=== PATIENT | female | born 1940 | race Caucasian/White ===

== ENCOUNTER 2020-01-03 00:36 | Emergency (ER) | payer OTHER, BC ==
[2020-01-03 00:42] VITALS: TEMP 97.5; BMI 25.0
--- NOTE | 2020-01-03 01:28 | PDOC ---
History of Present Illness - General Chief Complaint: Palpitations Stated Complaint: ELEVATED HEART RATE/HX OF AFIB Time Seen by Provider: 01/03/20 00:45 History Source: Patient Exam Limitations: No Limitations - History of Present Illness Initial Comments: 01/03/20 01:25 signed up for pt at 1: 26 am 79 yo female pmh atrial fibrillation h/o RFA and multiple ablations (most recent 2 years 75 yo female with known h/o paroxysmal atrial fibrillation h/o RFA and post cardioversion most recently 10/05/2016 currently on antiarrhythmic and Xarelto [id number], mitral valve prolapse with mild-moderate MR, HTN/HCVD, diastolic dysfunction with mod pulm HTN, RA Past History - Past Medical History Allergies/Adverse Reactions: Allergies Allergy/AdvReac Type Severity Reaction Status Date / Time codeine Allergy Severe Hives Verified 01/03/20 00:42 diltiazem HCl Allergy Intermediate Hives Verified 01/03/20 00:42 [From CiDRA XT] Home Medications: Ambulatory Orders Rivaroxaban [Xarelto -] 20 mg PO DAILY 02/05/16 Sotalol HCl [Betapace -] 120 mg PO BID 02/05/16 Famotidine [Acid Controller] 20 mg PO BID 01/03/20 Olmesartan/Hydrochlorothiazide [Olmesartan-Hctz 20-12.5 mg Tab] 1 each PO DAILY 01/03/20 Anemia: No Asthma: No Cancer: Yes (RIGHT BREAST-ON RADIATION) Cardiac Disorders: Yes (ATRIAL FIBRILLATION W/ CARDIOVERSION 2X) CVA: No COPD: No CHF: No Dementia: No Diabetes: No GI Disorders: Yes (IBS,COLON POLYP. GERD) Disorders: No HTN: Yes Hypercholesterolemia: No Liver Disease: No Seizures: No Thyroid Disease: No - Surgical History Abdominal Surgery: Yes Appendectomy: No Cardiac Surgery: Yes (ABLATION) Cholecystectomy: No Lung Surgery: No Neurologic Surgery: No Orthopedic Surgery: No - Immunization History Immunization Up to Date: Yes - Psycho Social/Smoking Cessation Hx Smoking Status: No Smoking History: Never smoked Have you smoked in the past 12 months: No Number of Cigarettes Smoked Daily: 0 Hx Alcohol Use: Yes (OCCASIONAL WINE) Drug/Substance Use Hx: No Substance Use Type: None Hx Substance Use Treatment: No *Physical Exam - Vital Signs Last Vital Signs Temp Pulse Resp BP Pulse Ox 97.5 F L 85 18 180/77 H 97 01/03/20 00:39 01/03/20 00:39 01/03/20 00:39 01/03/20 00:39 01/03/20 00:39 ED Treatment Course - LABORATORY CBC & Chemistry Diagram: 01/03/20 02:05 01/03/20 02:05 Discharge - Discharge Information Problems reviewed: Yes Clinical Impression/Diagnosis: Atrial fibrillation Condition: Stable Disposition: HOME - Admission No - Follow up/Referral Referrals: Ruben Queen MD [Primary Care Provider] - iCsco Hinojosa MD [Staff Physician] - - Patient Discharge Instructions Patient Printed Discharge Instructions: DI for Atrial Fibrillation Additional Instructions: Please make an appointment to see you [facility] and Primary Doctor within the next 48 hours. You can return to the ER at any time for evaluation and admission for atrial fibrillation and you have decided to see your Primary [facility] as an outpatient instead. Return to the ER for new or concerning symptoms at any time. Thank you - Post Discharge Activity
[2020-01-03 02:15] LABS: BASO % 0.5 % (0-2.0); EOS % 1.6 % (0-4.5); HEMATOCRIT 38.5 % (32.4-45.2); HEMOGLOBIN 13.1 GM/dL (10.7-15.3); LYMPH % 11.5 % (8-40); MCH 31.5 pg (25.7-33.7); MCHC 33.9 g/dl (32.0-36.0); MONO % 6.6 % (3.8-10.2); NEUT % 79.8 % (42.8-82.8); PLATELET COUNT 198 K/MM3 (134-434); RBC 4.14 M/mm3 (3.60-5.2); RDW 14.9 % (11.6-15.6); WHITE BLOOD COUNT 8.8 K/mm3 (4.0-10.0)
--- NOTE | 2020-01-03 02:30 | PDOC ---
Attending Attestation - Resident Resident Name: ElidiaArmand - ED Attending Attestation I have performed the following: I have examined & evaluated the patient, The case was reviewed & discussed with the resident, I agree w/resident's findings & plan, Exceptions are as noted - HPI HPI: 01/03/20 02:28 79 yo F with h/o paroxysmal afib. s/p 2 ablations, here with c/o racing heart beat this evening around 11 pm. lasted 1 hours. denies chest pain. no sob. no f/ c no urinar complaints. no f/c spont resolved. currently feels improved. has required shock for dysthymia in the past . has seen dr Sophy richmond and Dr Burgos. - Physicial Exam PE: 01/03/20 02:29 pt awake alert heart rrr no mrg abd soft nt nd ext wwp. skin warm and dry. pulses symmetric. - Medical Decision Making 01/03/20 02:29 79 yo F h/o afib here wiht racing heart beat, now currently in sinus. differential dysrhtymia, parox afib, anemia, electrolyte disturbance. plan labs ekg trop ua tsh, cxr. 01/03/20 03:13 pt in sinus rhythm in ED, labs unremarkable. trop negative. pt woud like to go [place]. suggested tel monitoring and she is unwilling to stay. is already anticoagulated. told to follow up with dr Beckett in am. return for worsening palpitations or racing heart beat. Heart Score/ECG Review #1 General ECG Interpretation: Sinus Rhythm, Normal Rate (77), Normal Intervals, No acute ischemic changes
[2020-01-03 02:31] LABS: INR 2.95 (0.83-1.09); PROTHROMBIN TIME (PATIENT) 35.2 SEC (9.7-13.0)
[2020-01-03 02:33] LABS: ACTIVATED PTT 50.3 SECONDS (25.2-36.5)
[2020-01-03 02:46] LABS: ALBUMIN 4.1 g/dl (3.4-5.0); ALK PHOS 77 U/L (45-117); ANION GAP 9 MMOL/L (8-16); BILIRUBIN,TOTAL 0.4 mg/dL (0.2-1); BLOOD UREA NITROGEN 26.9 mg/dL (7-18); CALCIUM 9.5 mg/dL (8.5-10.1); CHLORIDE 102 mmol/L (98-107); CO2 29 mmol/L (21-32); CREATININE 1.1 mg/dL (0.55-1.3); GLUCOSE,RANDOM 145 mg/dL (74-106); POTASSIUM 4.1 mmol/L (3.5-5.1); SGOT/AST 19 U/L (15-37); SGPT/ALT 28 U/L (13-61); SODIUM 139 mmol/L (136-145); TOT PROT 7.6 g/dl (6.4-8.2)
[2020-01-03 03:18] VITALS: BP 117/71; PULSE 68
--- NOTE | 2020-01-03 13:59 | EKG ---
Test Reason : Blood Pressure : / mmHG Vent. Rate : 077 BPM Atrial Rate : 077 BPM P-R Int : 160 ms QRS Dur : 092 ms QT Int : 428 ms P-R-T Axes : 084 068 054 degrees QTc Int : 484 ms NORMAL SINUS RHYTHM NONSPECIFIC ST ABNORMALITY ABNORMAL ECG WHEN COMPARED WITH ECG OF 20-OCT-2016 12:14, CRITERIA FOR SEPTAL INFARCT ARE NO LONGER PRESENT Confirmed by INDY MURDOCK MD ([id number]) on 01/03/2020 1:59:03 PM Referred By: Confirmed By:INDY MURDOCK MD
== END 2020-01-03 03:29 | disposition home or self-care (01) ==
LOC: JER 00:36
DX: I48.0 Paroxysmal atrial fibrillation (principal); Z79.01 Long term (current) use of anticoagulants; I10 Essential (primary) hypertension; Z85.3 Personal history of malignant neoplasm of breast; Z92.3 Personal history of irradiation; I34.0 Nonrheumatic mitral (valve) insufficiency; M06.9 Rheumatoid arthritis, unspecified; K21.9 Gastro-esophageal reflux disease without esophagitis; Z88.8 Allergy status to other drugs, medicaments and biological substances; Z88.5 Allergy status to narcotic agent; Z86.010 Personal history of colon polyps
CPT/HCPCS: 36415; 71045-TC-FY; 80053; 82550; 83735; 84443; 84484; 85025; 85610; 85730; 93005; 93010; 99285-25

== ENCOUNTER 2020-08-04 16:02 | Inpatient (IN) | payer OTHER, BC ==
--- NOTE | 2020-08-04 16:19 | PDOC ---
Rapid Medical Evaluation Time Seen by Provider: 08/04/20 16:16 Medical Evaluation: Allergies Allergy/AdvReac Type Severity Reaction Status Date / Time codeine Allergy Severe Hives Verified 01/03/20 00:42 diltiazem HCl Allergy Intermediate Hives Verified 01/03/20 00:42 [From Cartia XT] 08/04/20 16:16 I have performed a brief in-person examination on this patient. CC: "I passed out today." Struck head on chest of drawers during fall. PE: BP-184/81. Orders: cardiac w/u, HCT Patient will proceed to ED for further evaluation. Discharge Disposition - Diagnosis Syncope and collapse - Referrals - Patient Instructions - Post Discharge Activity
[2020-08-04] MEDS ORDERED: KETOROLAC TROMETHAMINE 30 MG/1 ML VIAL ONE (18:05)
[2020-08-04 18:42] LABS: BASO % 0.7 % (0-2.0); EOS % 1.8 % (0-4.5); HEMATOCRIT 37.2 % (32.4-45.2); HEMOGLOBIN 12.7 GM/dL (10.7-15.3); LYMPH % 18.3 % (8-40); MCH 31.8 pg (25.7-33.7); MCHC 34.1 g/dl (32.0-36.0); MEAN CELL VOLUME 93.2 fl (80-96); MEAN PLT VOLUME 9.2 fl (7.5-11.1); MONO % 8.6 % (3.8-10.2); NEUT % 70.6 % (42.8-82.8); PLATELET COUNT 189 K/MM3 (134-434); RBC 3.99 M/mm3 (3.60-5.2); RDW 14.6 % (11.6-15.6); WHITE BLOOD COUNT 6.1 K/mm3 (4.0-10.0)
--- NOTE | 2020-08-04 18:43 | PDOC ---
History of Present Illness - General Chief Complaint: Injury Stated Complaint: BLOOD PRESSURE PROBLEM Time Seen by Provider: 08/04/20 16:16 - History of Present Illness Initial Comments: 08/04/20 18:43 79 yo f with pmh of afib (on xarelto), htn, multiple ablations presents to ED after fall at 8:30am. Pt explains she was making her bed and then she felt lightheaded and off balance. Then patient fell on right side and on head. Pt explains she never loc and was on the floor for a few seconds and was able to get up on her own. Pt afterwards just felt lightheaded. She continuosly took her BP since fall and at 4 pm Bp was 180s/90 and pt decided to come in. Pt currently denies any chest pain, SOB, headache, fevers, chills, change in bowel movements, change in urination, emesis, sick contacts or dizziness. PMH: afib, htn PSH: 2 ablations Allergies: codeine Meds: sotalol 120 BID, xarelto 20 QID, olmesartan/hctz 20-12.5 QD, famotidine 20 QD Social: denies smoking, drugs, or alcohol PCP: Dr. Jesus Lord Cardio: Dr. Hernandez Past History - Medical History Allergies/Adverse Reactions: Allergies Allergy/AdvReac Type Severity Reaction Status Date / Time codeine Allergy Severe Hives Verified 08/04/20 16:16 diltiazem HCl Allergy Intermediate Hives Verified 08/04/20 16:16 [From Cartia XT] Home Medications: Ambulatory Orders Rivaroxaban [Xarelto -] 20 mg PO DAILY 02/05/16 Sotalol HCl [Betapace -] 120 mg PO BID 02/05/16 Famotidine [Acid Controller] 20 mg PO BID 01/03/20 Olmesartan/Hydrochlorothiazide [Olmesartan-Hctz 20-12.5 mg Tab] 1 each PO DAILY 08/05/20 Anemia: No Asthma: No Cancer: Yes (RIGHT BREAST-ON RADIATION) Cardiac Disorders: Yes (ATRIAL FIBRILLATION W/ CARDIOVERSION 2X) CVA: No COPD: No CHF: No Dementia: No Diabetes: No GI Disorders: Yes (IBS,COLON POLYP. GERD) Disorders: No HTN: Yes Hypercholesterolemia: No Liver Disease: No Seizures: No Thyroid Disease: No - Surgical History Abdominal Surgery: Yes Appendectomy: No Cardiac Surgery: Yes (ABLATION) Cholecystectomy: No Lung Surgery: No Neurologic Surgery: No Orthopedic Surgery: No - Immunization History Immunization Up to Date: Yes - Psycho-Social/Smoking History Smoking Status: No Smoking History: Never smoked Have you smoked in the past 12 months: No Number of Cigarettes Smoked Daily: 0 - Substance Abuse Hx (Audit-C & DAST Scrn) How often the patient has a drink containing alcohol: Monthly or less Number of drinks the patient has on a typical day: 1 or 2 How often the patient has six or more drinks on one occasion: Never Score: In Men: 4 or > Positive; In Women: 3 or > Positive: 1 Screen Result (Pos requires Nsg. Audit-10AR): Negative In the last yr the pt used illegal drug/Rx for NonMed reason: No Score: Yes response is considered Positive: 0 Screen Result (Positive result requires Nsg. DAST-10): Negative Review of Systems - Review of Systems Comments:: 08/04/20 19:27 GENERAL/CONSTITUTIONAL: No fever or chills. No weakness. HEAD, EYES, EARS, NOSE AND THROAT: No change in vision. No ear pain or discharge. No sore throat. CARDIOVASCULAR: No chest pain or shortness of breath RESPIRATORY: No cough, wheezing, or hemoptysis. GASTROINTESTINAL: No nausea, vomiting, diarrhea or constipation. GENITOURINARY: No dysuria, frequency, or change in urination. MUSCULOSKELETAL: No joint or muscle swelling or pain. No neck or back pain. SKIN: No rash NEUROLOGIC: No headache, vertigo, loss of consciousness, or change in strength/sensation. ENDOCRINE: No increased thirst. No abnormal weight change HEMATOLOGIC/LYMPHATIC: No anemia, easy bleeding, or history of blood clots. ALLERGIC/IMMUNOLOGIC: No hives or skin allergy. *Physical Exam - Vital Signs Last Vital Signs Temp Pulse Resp BP Pulse Ox 97.9 F 68 18 184/81 H 100 08/04/20 16:17 08/04/20 16:17 08/04/20 16:17 08/04/20 16:17 08/04/20 16:17 - Physical Exam 08/04/20 19:41 GENERAL: Awake, alert, and fully oriented, in no acute distress HEAD: No signs of trauma, normocephalic, atraumatic EYES: PERRLA, EOMI, sclera anicteric, conjunctiva clear ENT: Auricles normal inspection, hearing grossly normal, nares patent, or opharynx clear without exudates. Moist mucosa NECK: Normal ROM, supple, no lymphadenopathy, JVD, or masses LUNGS: No distress, speaks full sentences, clear to auscultation bilaterally HEART: Regular rate and rhythm, normal S1 and S2, no murmurs, rubs or gallops, peripheral pulses normal and equal bilaterally. ABDOMEN: Soft, nontender, No guarding, no rebound. No masses EXTREMITIES : Normal inspection, Normal range of motion, no edema. No clubbing or cyanosis. NEUROLOGICAL: Cranial nerves II through XII intact. Normal speech, no focal sensorimotor deficits SKIN: Warm, Dry, normal turgor, no rashes or lesions noted Heart Score/ECG Review - ECG Impressions Comment:: 08/05/20 00:20 Regular rate and rhythm at 75 bpm Normal GA, QRS, and QT interval Normal axis No ST elevation or signs of ischemia ED Treatment Course - LABORATORY CBC & Chemistry Diagram: 08/05/20 05:45 08/05/20 05:45 Medical Decision Making - Medical Decision Making 08/04/20 19:39 79 yo female with pmh above presenting to ED for presyncope and high bp. Pt will get syncope work up, EKG, cardiac enzymes, cbc, cmp. Pt labs and ekg are normal. Will admit for syncope 08/04/20 20:13 PT labs were normal, CT showed no acute changes. Will admit for syncope. Pt history, ED course, and plan was discussed with inpatient team will admit to Dr. Loretta Villafuerte Discharge - Discharge Information Problems reviewed: Yes Clinical Impression/Diagnosis: Syncope and collapse Condition: Improved - Admission Yes - Follow up/Referral - Patient Discharge Instructions - Post Discharge Activity
[2020-08-04 18:51] LABS: INR 1.49 (0.83-1.09); PROTHROMBIN TIME (PATIENT) 17.6 SEC (9.7-13.0)
[2020-08-04 18:53] LABS: ACTIVATED PTT 35.2 SECONDS (25.2-36.5)
[2020-08-04 19:08] LABS: ALBUMIN 4.4 g/dl (3.4-5.0); ALK PHOS 79 U/L (45-117); ANION GAP 8 MMOL/L (8-16); BILIRUBIN,TOTAL 0.5 mg/dL (0.2-1); BLOOD UREA NITROGEN 18.6 mg/dL (7-18); CALCIUM 9.6 mg/dL (8.5-10.1); CHLORIDE 98 mmol/L (98-107); CO2 28 mmol/L (21-32); GLUCOSE,RANDOM 98 mg/dL (74-106); MAGNESIUM 2.3 mg/dL (1.8-2.4); POTASSIUM 3.9 mmol/L (3.5-5.1); SGOT/AST 18 U/L (15-37); SGPT/ALT 26 U/L (13-61); SODIUM 134 mmol/L (136-145); TOT PROT 8.1 g/dl (6.4-8.2)
[2020-08-04] MEDS ORDERED: SODIUM CHLORIDE 1,000 ML IV SCH (20:45)
--- OUTSIDE RECORDS SUMMARY | 2020-08-04 20:46 | XMS ---
:1940 Author Organization [facility] Support Name Relationship Address Phone RE, RETIRED Unavailable Unavailable Unavailable RE Unavailable Unavailable Unavailable ALFIE ANDREW DAUGHTER [address] [place] [address] JANAY ARROYO DAUGHTER [address] [place] [address] Re-disclosure Warning The records that you are about to access may contain information from federally- assisted alcohol or drug abuse programs. If such information is present, then the following federally mandated warning applies: This information has been disclosed to you from records protected by federal confidentiality rules (42 CFR part 2). The federal rules prohibit you from making any further disclosure of this information unless further disclosure is expressly permitted by the written consent of the person to whom it pertains or as otherwise permitted by 42 CFR part 2. A general authorization for the release of medical or other information is NOT sufficient for this purpose. The Federal rules restrict any use of the information to criminally investigate or prosecute any alcohol or drug abuse patient.The records that you are about to access may contain highly sensitive health information, the redisclosure of which is protected by Article 27-F of the [facility] Public Health law. If you continue you may haveaccess to information: Regarding HIV / AIDS; Provided by facilities licensed or operated by the [facility] Office of Mental Health; or Provided by the [facility] Office for People With Developmental Disabilities. If such information is present, then the following [facility] mandated warning applies: This information has been disclosed to you from confidential records which are protected by state law. State law prohibits you from making any further disclosure of this information without the specific written consent of the person to whom it pertains, or as otherwise permitted by law. Any unauthorized further disclosure in violation of state law may result in a fine or snf sentence or both. A general authorization for the release of medical or other information is NOT sufficient authorization for further disclosure. Insurance Providers Payer name Policy type Policy ID Covered Covered libertarian's Policy P fabio / Coverage libertarian ID relationship to [employer] ormation type perez BC PPO [id number] SP [id number] MEDICARE [id number] SP [id number] PPO [id number] SP [id number]
--- NOTE | 2020-08-04 20:58 | HP ---
CHIEF COMPLAINT: lightheadedness, s/p fall versus ? syncopy PCP:Dr. Jesus Queen Cardiology: Dr. Jaylon Peterson HISTORY OF PRESENT ILLNESS: 79 year old female with a past medical history atrial fibrillation (on sotolol and xarelto), multiple prior cardioversions/ablations at [facility], prediabetes and hypertension who presented after fall versus ? syncopal episode she had this morning. Patient reports she was making her bed and then she felt lightheaded and off balance. She fell to the floor and reported hit her head. She is unsure if there was loss of consciousness for a few seconds but she was able to get up on her own and afterwards just felt lightheaded. She took her blood pressure several times since her fall and at 4 pm blood pressure was 180/90 when patient decided to come in. Patient reported taking blood pressure medication today. Patient denied chest pain, shortness of breath, headache, fevers, chills, change in bowel movements/urination,emesis, sick contacts,COVID exposure. She continues to report having symptoms of lightheadedness. ER course notable for: normal troponin , EKG - normal sinus rhythm, no signs of ischemia normal renal studies CT scan of head unremarkable, no evidence of hemorrhage Recent Travel: no PAST MEDICAL HISTORY: atrial fibrillation with prior cardioversions and ablations hypertension PAST SURGICAL HISTORY: none Social History: Smoking:no Alcohol:no Drugs:no Allergies codeine Allergy (Severe, Verified 08/04/20 16:16) Hives diltiazem HCl [From Cartia XT] Allergy (Intermediate, Verified 08/04/20 16:16) Hives HOME MEDICATIONS: Home Medications Medication Instructions Recorded Rivaroxaban [Xarelto -] 20 mg PO DAILY 02/05/16 Sotalol HCl [Betapace -] 120 mg PO BID 02/05/16 Famotidine [Acid Controller] 20 mg PO BID 01/03/20 REVIEW OF SYSTEMS CONSTITUTIONAL: Absent: fever, chills, diaphoresis, generalized weakness, malaise, loss of appetite, weight change HEENT: Absent: rhinorrhea, nasal congestion, throat pain, throat swelling, difficulty swallowing, mouth swelling, ear pain, eye pain, visual changes CARDIOVASCULAR: Absent: chest pain, syncope, palpitations, irregular heart rate,lightheadedness, peripheral edema RESPIRATORY: Absent: cough, shortness of breath, dyspnea with exertion, orthopnea, wheezing, stridor, hemoptysis GASTROINTESTINAL: Absent: abdominal pain, abdominal distension, nausea, vomiting, diarrhea, constipation, melena, hematochezia GENITOURINARY: Absent: dysuria, frequency, urgency, hesitancy, hematuria, flank pain, genital pain MUSCULOSKELETAL: Absent: myalgia, arthralgia, joint swelling, back pain, neck pain SKIN: Absent: rash, itching, pallor HEMATOLOGIC/IMMUNOLOGIC: Absent: easy bleeding, easy bruising, lymphadenopathy, frequent infections ENDOCRINE: Absent: unexplained weight gain, unexplained weight loss, heat intolerance, cold intolerance NEUROLOGIC: Absent: headache, focal weakness or paresthesias, dizziness, unsteady gait, seizure, mental status changes, bladder or bowel incontinence PSYCHIATRIC: Absent: anxiety, depression, suicidal or homicidal ideation, hallucinations. PHYSICAL EXAMINATION Vital Signs - 24 hr 08/04/20 08/04/20 16:17 18:19 Temperature 97.9 F 98.1 F Pulse Rate 68 Pulse Rate [ 60 Left Radial] Respiratory 18 20 Rate Blood Pressure 184/81 H Blood Pressure 149/65 [Left Arm] O2 Sat by Pulse 100 100 Oximetry (%) General no acute distress Vital signs reviewed afebrile Neuro awake alert oriented X3 no neuro deficits moving upper and lower extre mities with no deficits Lungs CTA nonlabored breathing effort no rales no wheezing Hearts 1s2 rate regular no murmurs Abdomen soft nontender nondistedned Extremities warm to touch no pitting edema no cyanosis Skin nail beds and lips pink Mood calm Laboratory Results - last 24 hr 08/04/20 08/04/20 08/04/20 18:02 18:02 18:02 WBC 6.1 RBC 3.99 Hgb 12.7 Hct 37.2 MCV 93.2 MCH 31.8 MCHC 34.1 RDW 14.6 Plt Count 189 MPV 9.2 Absolute Neuts (auto) 4.3 Neutrophils % 70.6 Lymphocytes % 18.3 D Monocytes % 8.6 Eosinophils % 1.8 Basophils % 0.7 Nucleated RBC % 0 PT with INR 17.60 H INR 1.49 H PTT (Actin FS) 35.2 Sodium 134 L Potassium 3.9 Chloride 98 Carbon Dioxide 28 Anion Gap 8 BUN 18.6 H Creatinine 1.0 Est GFR (CKD-EPI)AfAm 61.19 Est GFR (CKD-EPI)NonAf 52.79 Random Glucose 98 Calcium 9.6 Magnesium 2.3 Total Bilirubin 0.5 AST 18 ALT 26 Alkaline Phosphatase 79 Creatine Kinase 46 Troponin I < 0.02 Total Protein 8.1 Albumin 4.4 ASSESSMENT/PLAN: Mrs. Cummings is an 79 year old female with a past medical history of atrial fibrillation (on sotolol, xarelto), multiple prior cardioversions/ablations, prediabetes and hypertension who presented after fall versus ? syncopy. CT scan of head was unremarkable. Troponin was normal. She denied any symptoms of chest pain or shortness of breath. She is being admitted to telemetry for further medical and cardiac evaluation for ? syncopy and uncontrolled hypertension. #1 fall versus ? syncopy symptomatic, blood pressure is elevated troponin normal X2 -monitor on telemetry for ectopy/arrthymia -check orthostatic vital signs -check carotid doppler -check echo to evaluate EF and exclude progression of valvular disease -continue to trend troponins -check UA -check TSH, t3/t4 -IVF NS@ 75cc/hr started (creatinine normal) -Neurology- Dr. Love consulted -Cardiology- Dr. Jaylon Ferrara consulted #2 hypertension uncontrolled SBP 180's -c/w hctz 12.5 mg daily -olmesartan NF, added lisinopril 5 mg daily -continue to monitor BP closely #3 atrial fibrillation rate controlled EKG- sinus rhythm, no signs of acute ischemia -c/w sotolol 120mg twice daily -c/w Xarelto #4 rule out COVID-19 follow up on COVID test results maintain o2 sat >90% maintain strict isolation precautions for contact and droplet FEN IVF NS @ 75cc/hr BMP daily and replete electrolytes as needed low sodium diet DVT Prophylaxis c/w systemic anticoagulation with Xarelto SCD's Family Medical History Family History: Denies Visit type - Medication Review Med list reviewed for High Risk Meds patients 65 and older: Yes - Emergency Visit Emergency Visit: Yes ED Registration Date: 08/04/20 Care time: The patient presented to the Emergency Department on the above date and was hospitalized for further evaluation of their emergent condition. - New Patient This patient is new to me today: Yes Date on this admission: 08/05/20 - Critical Care Critical Care patient: No
[2020-08-04] MEDS ORDERED: LISINOPRIL 5 MG TABLET PO ONE (21:22)
[2020-08-04] MEDS ORDERED: FAMOTIDINE 20 MG TABLET ONE (21:38)
[2020-08-04] MEDS: SOTALOL HCL 80 MG TABLET (FP) PO SCH (21:55)
[2020-08-04] MEDS: FAMOTIDINE 20 MG TABLET PO SCH (21:55)
[2020-08-05 03:31] VITALS: BMI 25.9
[2020-08-05 07:02] LABS: HEMATOCRIT 36.5 % (32.4-45.2); HEMOGLOBIN 12.2 GM/dL (10.7-15.3); MCH 31.1 pg (25.7-33.7); MCHC 33.4 g/dl (32.0-36.0); MEAN CELL VOLUME 93.1 fl (80-96); MEAN PLT VOLUME 9.1 fl (7.5-11.1); PLATELET COUNT 181 K/MM3 (134-434); RBC 3.92 M/mm3 (3.60-5.2); RDW 14.5 % (11.6-15.6); WHITE BLOOD COUNT 6.6 K/mm3 (4.0-10.0)
[2020-08-05 07:25] LABS: BLOOD UREA NITROGEN 16.3 mg/dL (7-18); CALCIUM 8.9 mg/dL (8.5-10.1); MAGNESIUM 2.1 mg/dL (1.8-2.4); POTASSIUM 4.1 mmol/L (3.5-5.1)
[2020-08-05 08:57] VITALS: BP 146/74; PULSE 69; TEMP 98
[2020-08-05] MEDS: SOTALOL HCL 80 MG TABLET (FP) PO SCH (09:23)
[2020-08-05] MEDS: FAMOTIDINE 20 MG TABLET PO SCH (09:23)
--- NOTE | 2020-08-05 09:54 | EKG ---
Test Reason : Blood Pressure : / mmHG Vent. Rate : 060 BPM Atrial Rate : 060 BPM P-R Int : 144 ms QRS Dur : 088 ms QT Int : 500 ms P-R-T Axes : 067 059 040 degrees QTc Int : 500 ms NORMAL SINUS RHYTHM NONSPECIFIC ST ABNORMALITY PROLONGED QT ABNORMAL ECG WHEN COMPARED WITH ECG OF 03-JAN-2020 01:37, NO SIGNIFICANT CHANGE WAS FOUND Confirmed by Aristeo Farias MD ([id number]) on 08/05/2020 9:53:25 AM Referred By: Confirmed By:Aristeo Farias MD
--- NOTE | 2020-08-05 09:54 | EKG ---
Test Reason : Blood Pressure : / mmHG Vent. Rate : 072 BPM Atrial Rate : 072 BPM P-R Int : 150 ms QRS Dur : 086 ms QT Int : 426 ms P-R-T Axes : 079 067 032 degrees QTc Int : 466 ms SINUS RHYTHM WITH PREMATURE ATRIAL COMPLEXES SEPTAL INFARCT , AGE UNDETERMINED ABNORMAL ECG WHEN COMPARED WITH ECG OF 03-JAN-2020 01:37, PREMATURE ATRIAL COMPLEXES ARE NOW PRESENT SEPTAL INFARCT IS NOW PRESENT Confirmed by Aristeo Farias MD ([id number]) on 08/05/2020 9:53:56 AM Referred By: Confirmed By:Aristeo Farias MD
[2020-08-05] MEDS ORDERED: LISINOPRIL 5 MG TABLET PO SCH (10:00)
[2020-08-05] MEDS ORDERED: HYDROCHLOROTHIAZIDE 12.5 MG CAPSULE (FP) PO SCH (10:00)
--- NOTE | 2020-08-05 10:48 | ECHO ---
Name: KAYLIN FISHER Exam:Adult Echocardiogram Study Date: 08/05/2020 10:06 AM Age: 79 yrs Reason For Study: SYNCOPE Height: 65 in Weight: 154 lb BSA: 1.8 m2 MMode/2D Measurements & Calculations IVSd: 0.90 cm Ao root diam: 2.4 cm LVIDd: 4.2 cm LA dimension: 3.9 cm LVIDs: 2.7 cm ACS: 1.5 cm LVPWd: 0.84 cm EDV(Teich): 79.3 ml LVOT diam: 2.0 cm ESV(Teich): 28.0 ml LAV (MOD-bp): 57.0 ml TAPSE: 2.3 cm RV S Phillip: 13.7 cm/sec Doppler Measurements & Calculations MV E max phillip: 124.0 cm/sec Ao V2 max: 149.3 cm/sec MV A max phillip: 45.0 cm/sec Ao max P.9 mmHg MV E/A: 2.8 Ao V2 mean: 102.5 cm/sec MV dec time: 0.21 sec Ao mean P.7 mmHg Ao V2 VTI: 33.6 cm SONY(I,D): 1.9 cm2 SONY(V,D): 1.9 cm2 LV V1 max P.3 mmHg MR max phillip: 400.2 cm/sec LV V1 mean P.5 mmHg MR max P.8 mmHg LV V1 max: 90.8 cm/sec LV V1 mean: 58.2 cm/sec LV V1 VTI: 21.3 cm SV(LVOT): 65.2 ml TR max phillip: 313.1 cm/sec TR max P.4 mmHg PA V2 max: 86.9 cm/sec PI end-d phillip: 88.2 cm/sec PA max P.0 mmHg PA acc slope: 963.8 cm/sec2 PA acc time: 0.08 sec Med Peak E' Phillip: 6.7 cm/sec PA pr(Accel): 41.0 mmHg Med E/e': 18.5 Lat Peak E' Phillip: 7.1 cm/sec Lat E/e': 17.4 Pulm Sys Phillip: 111.6 cm/sec Pulm Guadalupe Phillip: 31.1 cm/sec Pulm S/D: 3.6 Procedure A complete two-dimensional transthoracic echocardiogram was performed (2D, M-mode, Doppler and color flow Doppler). Left Ventricle The left ventricular size, thickness and function are normal. Ejection Fraction = 60%. E/A reversal c onsistent with but not diagnostic of poor LV compliance. The left ventricular wall motion is normal. Right Ventricle The right ventricle is mildly dilated. The right ventricular systolic function is normal. Atria The left atrial size is normal. The right atrium is mildly dilated. Mitral Valve The mitral valve is normal in structure and function. There is mild mitral regurgitation. Tricuspid Valve The tricuspid valve is normal in structure and function. There is moderate tricuspid regurgitation. R ight ventricular systolic pressure is elevated at 46 mmhg. There is moderate pulmonary hypertension. Aortic Valve There is mild aortic valve thickening. Pulmonic Valve The pulmonic valve is normal in structure and function. Great Vessels The aortic root is normal size. Pericardium/Pleura There is no pericardial effusion. There is no pleural effusion. Interpretation Summary The left ventricular size, thickness and function are normal Ejection Fraction = 60%. The right ventricle is mildly dilated. The right ventricular systolic function is normal. The right atrium is mildly dilated. There is mild mitral regurgitation. There is moderate tricuspid regurgitation. Right ventricular systolic pressure is elevated at 46 mmhg. There is moderate pulmonary hypertension. There is mild aortic valve thickening. MD Aristeo Farias 08/05/2020 10:48 AM
--- NOTE | 2020-08-05 11:38 | CON.CARD ---
Cardiology Consult (text) - Consultation Consultation Note: Chief Complaint: Events noted, notes reviewed, resting in bed, admitted with a syncopal episode- reported preceding dizziness, denies chest discomfort or dyspnea, denies palpitations, sinus rhythm noted History of Present Illness: Seen and examined on telemetry. Full consult dictated - Current Medication List Current Medications Generic Name Dose Route Start Last Admin Trade Name Aakash PRN Reason Stop Dose Admin Famotidine 20 mg 08/04/20 22:00 08/05/20 09:23 Pepcid - PO 20 mg BID STEVE Administration Hydrochlorothiazide 12.5 mg 08/05/20 10:00 08/05/20 09:23 Hctz - PO 12.5 mg DAILY STEVE Administration Lisinopril 5 mg 08/05/20 10:00 08/05/20 09:23 Prinivil PO 5 mg DAILY STEVE Administration Rivaroxaban 20 mg 08/05/20 18:00 Xarelto PO DAILY@1800 STEVE Sotalol HCl 120 mg 08/04/20 22:00 08/05/20 09:23 Betapace - PO 120 mg BID STEVE Administration - Review of Systems Constitutional: denies: Chills, Fever Cardiovascular: As noted above Respiratory: denies: Cough, Sputum Production Gastrointestinal: denies: Abdominal Pain, Constipation, Melena, Nausea, Rectal Bleeding, Vomiting Genitourinary: denies: Hematuria Musculoskeletal: denies: Back Pain, Joint Pain Neurological: reports: Dizziness, Syncope - Objective Vital Signs: Last Vital Signs Temp Pulse Resp BP Pulse Ox 98 F 69 20 146/74 98 08/05/20 08:53 08/05/20 08:53 08/05/20 08:53 08/05/20 08:53 08/05/20 08:53 Intake & Output 08/02/20 08/03/20 08/04/20 08/05/20 23:59 23:59 23:59 23:59 Intake Total 390 Balance 390 Weight 154 lb 155 lb 9.6 oz Neck: Supple Negative JVD Cardiovascular: S1 S2 Regular rate rhythm Grade 1/6 systolic apical murmur Respiratory: Clear to A&P Bilaterally Gastrointestinal: Soft Benign Normal Bowel Sounds Ext: Negative Edema Labs: Troponin, BNP 08/04/20 08/05/20 18:02 00:48 Troponin I < 0.02 < 0.02 CBC, BMP 08/05/20 05:45 08/05/20 05:45 Hepatic Panel Total Bilirubin 0.5 mg/dL (0.2-1) 08/04/20 18:02 AST 18 U/L (15-37) 08/04/20 18:02 ALT 26 U/L (13-61) 08/04/20 18:02 Alkaline Phosphatase 79 U/L (45-117) 08/04/20 18:02 Albumin 4.4 g/dl (3.4-5.0) 08/04/20 18:02 INR, PTT INR 1.49 (0.83-1.09) H 08/04/20 18:02 Assessment/Plan ASSESSMENT: 1. Syncopal episode etiology of which is unclear, neurocardiogenic syncope versus surjit-arrhythmia associated syncope unlikely to be tachycardia associated syncope 2. Paroxysmal atrial fibrillation post PVI- RFA (April 14, 2016 and December 01, 2016) [id number] score of 5 on anticoagulation and antiarrhythmic therapies 3. Diastolic LV dysfunction with clinical class 0-I NYHA classification LV failure, clinically compensated/euvolemic 4. 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 Tricuspid valve regurgitation, mild to moderate in severity with moderate degree of pulmonary hypertension 6. Hypertensive cardiovascular disease 7. Hypertriglyceridemia PLAN: 1. Continue Sotalol therapy 2. Continue anticoagulation therapy with Xarelto indefinitely considering p atient's [id number] score of 5 unless it is absolutely contraindicated 3. Continue Benicar HCT therapy (home medication) 4. Additional outpatient evaluation for the above noted presentation/syncope i ncluding extended ambulatory monitor and probable implantation of ILR (implantable loop recorder) Patient can be discharged home from the cardiovascular point of view and F/U already scheduled in the office for next week Cisco Hinojosa MD
--- NOTE | 2020-08-05 12:00 | PN ---
Teaching Attending Note Name of Resident: Calvin Saenz ATTENDING PHYSICIAN STATEMENT I saw and evaluated the patient. I reviewed the resident's note and discussed the case with the resident. I agree with the resident's findings and plan as documented. SUBJECTIVE: Seen and examined at bedside. Patient denies any feelings of dizziness or light headedness or palpitations at this time. Currently in normal sinus rhythm on telemetry. Patient underwent an echocardiogram which showed ejection fraction of 60% with moderate pulmonary hypertension and ventricular systolic pressure of 46, as well as moderate tricuspid regurg. Orthostatics were negative, carotid Doppler showed no obstruction. And labs are unremarkable. Patient has a follow-up with her production artist later this week and has been cleared by cardiology as well as medicine for discharge. She may continue her home medications OBJECTIVE: Last Vital Signs Temp Pulse Resp BP Pulse Ox 98 F 69 20 146/74 98 08/05/20 08:53 08/05/20 08:53 08/05/20 08:53 08/05/20 08:53 08/05/20 08:53 PE: per resident note Labs/Imaging: reviewed ASSESSMENT AND PLAN: 79-year-old female with past medical history of A. fib on sotalol and Xarelto, multiple prior cardioversions/ablations, prediabetes, hypertension presented after a fall. Patient stated she was in her regular state of health and was walking around her house when she felt lightheaded and fell to the ground. She does not believe she lost consciousness and denies palpitations. In the hospital labs were unremarkable, orthostatics were negative, and additional syncope work-up resulted as per above. Patient will follow-up with her outpatient production artist later this week for possible implantable loop recorder. She is medically cleared for discharge
--- NOTE | 2020-08-05 12:29 | CONS ---
DATE OF CONSULTATION: 08/05/2020 CONSULTATION REQUESTED BY: Hospitalist service. CHIEF COMPLAINT: Syncopal episode, cardiovascular evaluation. HISTORY: Patient well known to me from the office, 79-year-old female with known history of diastolic left ventricular dysfunction with chronic class 0-1 [place] [employer] classification left ventricular failure; LVEF between 60% to 65% on echocardiography performed May 08, 2020; paroxysmal atrial fibrillation post multiple cardioversions, post pulmonary vein isolation, radiofrequency ablation procedure, dates of procedure include April 14, 2016, and December 01, 2016, on antiarrhythmic/Betapace and anticoagulant/Xarelto therapies; [id number] score of 5; mitral valve redundancy/prolapse with moderate degree of mitral valve regurgitation; tricuspid valve regurgitation, mild to moderate in severity, with moderate degree of pulmonary hypertension; hypertensive cardiovascular disease; elevated hemoglobin A1c; hypertriglyceridemia; gastroesophageal reflux disease; chronic kidney disease; and rheumatoid arthritis, who presented to [facility] after sustaining a syncopal episode at home. Patient stated that she had taken her morning medications, and upon entering her bedroom, patient had transient dizziness followed by a syncopal episode and a fall to the ground. Patient hit her head without sustaining any significant injuries. Was encouraged by the daughter to present to the hospital for further evaluation and management. Patient did not report any preceding palpitations. Patient denies any chest discomfort. Patient reports dyspnea with moderate physical exertion. Patient denies any orthopnea, paroxysmal nocturnal dyspnea, or peripheral edema. Patient denies any fatigue or tiredness. PAST MEDICAL HISTORY: Diastolic left ventricular dysfunction with chronic class 0-1 [place] [employer] classification left ventricular failure; paroxysmal atrial fibrillation, [id number] score of 5, on anticoagulation therapy with Xarelto, on antiarrhythmic therapy with Betapace; multiple cardioversions post radiofrequency ablation procedure; PVI, RFA, dates of procedure include April 14, 2016, and December 01, 2016; mitral valve redundancy/prolapse with moderate degree of mitral valve regurgitation; tricuspid valve regurgitation, mild to moderate in severity, with moderate degree of pulmonary hypertension; hypertensive cardiovascular disease; elevated hemoglobin A1c; hypertriglyceridemia; gastroesophageal reflux disease; chronic kidney disease; rheumatoid arthritis. SOCIAL HISTORY: Nonsmoker. FAMILY HISTORY: No history of premature coronary artery disease. ALLERGIES: Intolerance to CODEINE. MEDICATIONS: Medical therapy at home included Pepcid 20 mg twice a day, Benicar/HCT 20/12.5 mg once a day, Xarelto 20 mg once a day, sotalol 120 mg twice a day. REVIEW OF SYSTEMS: Head and Neck: Denies headache, photophobia, blurring of vision. Respiratory: No cough or sputum production. Cardiovascular: As noted above. Gastrointestinal: No nausea, vomiting, diarrhea, abdominal discomfort. Genitourinary: No symptoms reported. Musculoskeletal: No symptoms reported. PHYSICAL EXAMINATION: Vital Signs: Blood pressure is 146/74 mmHg. Pulse rate is 69 beats per minute, regular. Head and Neck: Pupils equal, reactive to light and accommodation. External ocular muscles are intact. Anicteric sclera. Negative JVD. No bruit appreciated. Chest: Clear to auscultation and percussion. Cardiovascular: S1, S2 regular. Midsystolic click with grade 1/6 systolic apical murmur. No gallops. Abdomen: Soft, benign. Normoactive bowel sounds. Extremities: Negative edema, intact distal pulses, no calf tenderness. DIAGNOSTIC DATA: Electrocardiogram reveals normal sinus rhythm at 72 beats per minute with poor R wave progression in lead V2 and nonspecific ST segment abnormality. Carotid Doppler study noted minimal plaque with no evidence of hemodynamically significant stenosis. CT scan of the head and cervical spine reports were noted. CBC revealed a white cell count 6.6, hemoglobin 12.2, platelet count 181. INR 1.49. Basic metabolic profile revealed sodium 140, potassium 4.1, BUN 16.3, creatinine 1.0, estimated GFR 52.79, glucose 102. TSH 2.49. Troponin less than 0.02. ASSESSMENT: 1. Syncopal episode, etiology of which is unclear. Neurocardiogenic syncope versus bradyarrhythmia-associated syncope, unlikely to be tachycardia-associated syncope. 2. Paroxysmal atrial fibrillation post PVI RFA April 14, 2016, and December 01, 2016. [id number] score of 5 on anticoagulation therapy and antiarrhythmic therapies. 3. Diastolic left ventricular dysfunction with clinical class 0-1 [place] [employer] classification left ventricular failure, clinically compensated/euvolemic. 4. Mitral valve redundancy/prolapse with moderate degree of mitral valve regurgitation. 5. Tricuspid valve regurgitation, mild to moderate in severity, with moderate degree of pulmonary hypertension. 6. Hypertensive cardiovascular disease. 7. Hypertriglyceridemia. RECOMMENDATION: 1. Continuation of sotalol therapy at the current dosage. 2. Continuation of anticoagulation therapy with Xarelto indefinitely considering patient's [id number] of 5 unless it is absolutely contraindicated. 3. Continue Benicar/HCT therapy, home medication. 4. Additional evaluation of the above noted presentation/syncope includes extended ambulatory monitor and probable implantation of an ILR/implantable loop recorder. Patient can be discharged home from the cardiovascular point of view, and followup is already scheduled in the office for next week. Discussed in detail with the patient. Thank you for your kind referral. MANUEL CALDWELL M.D. [id number]
--- NOTE | 2020-08-05 13:38 | DS ---
Physical Exam: SUBJECTIVE: Patient seen and examined OBJECTIVE: Vital Signs Period Temp Pulse Resp BP Sys/Guadalupe Pulse Ox Last 24 Hr 97.8 F-98.1 F 58-70 16-20 140-184/56-81 96-100 PHYSICAL EXAM GENERAL: The patient is awake, alert, and fully oriented, in no acute distress. HEAD: Normal with no signs of trauma. EYES: PERRL, extraocular movements intact, sclera anicteric, conjunctiva clear. ENT: Ears normal, nares patent, oropharynx clear without exudates, moist mucous membranes. NECK: Trachea midline, full range of motion, supple. LUNGS: Breath sounds equal, clear to auscultation bilaterally, no wheezes, no crackles, no accessory muscle use. HEART: Regular rate and rhythm, S1, S2 without murmur, rub or gallop. ABDOMEN: Soft, nontender, nondistended, normoactive bowel sounds, no guarding, no rebound, no hepatosplenomegaly, no masses. EXTREMITIES: 2+ pulses, warm, well-perfused, no edema. NEUROLOGICAL: Cranial nerves II through XII grossly intact. Normal speech, gait not observed. PSYCH: Normal mood, normal affect. SKIN: Warm, dry, normal turgor, no rashes or lesions noted. LABS Laboratory Results - last 24 hr 08/04/20 08/04/20 08/04/20 18:02 18:02 18:02 WBC 6.1 RBC 3.99 Hgb 12.7 Hct 37.2 MCV 93.2 MCH 31.8 MCHC 34.1 RDW 14.6 Plt Count 189 MPV 9.2 Absolute Neuts (auto) 4.3 Neutrophils % 70.6 Lymphocytes % 18.3 D Monocytes % 8.6 Eosinophils % 1.8 Basophils % 0.7 Nucleated RBC % 0 PT with INR 17.60 H INR 1.49 H PTT (Actin FS) 35.2 Sodium 134 L Potassium 3.9 Chloride 98 Carbon Dioxide 28 Anion Gap 8 BUN 18.6 H Creatinine 1.0 Est GFR (CKD-EPI)AfAm 61.19 Est GFR (CKD-EPI)NonAf 52.79 Random Glucose 98 Hemoglobin A1c % Calcium 9.6 Magnesium 2.3 Total Bilirubin 0.5 AST 18 ALT 26 Alkaline Phosphatase 79 Creatine Kinase 46 Troponin I < 0.02 Total Protein 8.1 Albumin 4.4 TSH Thyroxine (T4) Resin T3 Uptake 08/05/20 08/05/20 08/05/20 00:48 05:45 05:45 WBC 6.6 RBC 3.92 Hgb 12.2 Hct 36.5 MCV 93.1 MCH 31.1 MCHC 33.4 RDW 14.5 Plt Count 181 MPV 9.1 Absolute Neuts (auto) Neutrophils % Lymphocytes % Monocytes % Eosinophils % Basophils % Nucleated RBC % PT with INR INR PTT (Actin FS) Sodium 140 Potassium 4.1 Chloride 105 Carbon Dioxide 28 Anion Gap 7 L BUN 16.3 Creatinine 1.0 Est GFR (CKD-EPI)AfAm 61.19 Est GFR (CKD-EPI)NonAf 52.79 Random Glucose 102 Hemoglobin A1c % Calcium 8.9 Magnesium 2.1 Total Bilirubin AST ALT Alkaline Phosphatase Creatine Kinase Troponin I < 0.02 Total Protein Albumin TSH 2.49 Thyroxine (T4) 11.2 Resin T3 Uptake 37.1 08/05/20 05:45 WBC RBC Hgb Hct MCV MCH MCHC RDW Plt Count MPV Absolute Neuts (auto) Neutrophils % Lymphocytes % Monocytes % Eosinophils % Basophils % Nucleated RBC % PT with INR INR PTT (Actin FS) Sodium Potassium Chloride Carbon Dioxide Anion Gap BUN Creatinine Est GFR (CKD-EPI)AfAm Est GFR (CKD-EPI)NonAf Random Glucose Hemoglobin A1c % 5.8 Calcium Magnesium Total Bilirubin AST ALT Alkaline Phosphatase Creatine Kinase Troponin I Total Protein Albumin TSH Thyroxine (T4) Resin T3 Uptake HOSPITAL COURSE: Date of Admission:08/04/20 Date of Discharge: 08/05/20 Discharge Summary Problems reviewed: Yes Reason For Visit: SYNCOPE AND COLLAPSE Current Active Problems Syncope and collapse (Acute) Condition: Improved - Instructions Diet, Activity, Other Instructions: You presented to the hospital due to a syncopal event. You were evaluated by your Milling Supervisor. Imaging of your head was negative for any acute findings. You are medically clear to be discharged home. Please follow up with your Milling Supervisor this week as you may need a holter monitor or Loop Recorder (device that records your heart's rhythm and activity) to assess for any underlying arrhythmias. Please also visit your primary care doctor this week. Please continue to take all of your home medications as prescribed. Please return to the emergency department immediately if you experience another one of these episodes, or if you develop shortness of breath, chest pain, lightheadedness, nausea/vomiting, or any other abnormal symptoms. Referrals: Cisco Hinojosa MD [Staff Physician] - 1 Week Ruben Queen MD [Primary Care Provider] - 1 Week Disposition: HOME - Home Medications Comprehensive Discharge Medication List: Ambulatory Orders Rivaroxaban [Xarelto -] 20 mg PO DAILY 02/05/16 Sotalol HCl [Betapace -] 120 mg PO BID 02/05/16 Famotidine [Acid Controller] 20 mg PO BID 01/03/20 Olmesartan/Hydrochlorothiazide [Olmesartan-Hctz 20-12.5 mg Tab] 1 each PO DAILY 08/05/20 ATTENDING PHYSICIAN STATEMENT I saw and evaluated the patient. I reviewed the resident's note and discussed the case with the resident. I agree with the resident's findings and plan as documented. SUBJECTIVE: OBJECTIVE: ASSESSMENT AND PLAN:
[2020-08-05] MEDS ORDERED: RIVAROXABAN 20 MG TABLET PO SCH (18:00)
--- NOTE | 2020-08-05 19:04 | CONSULT ---
Consult - text type - Consultation Consultation Note: NEUROLOGY: Consult was called in this mid-morning. Patient was discharged before seen by me. Out patient neurology consult / EEG if desired. Thank you very much, Desean Love MD
== END 2020-08-05 18:56 | disposition home or self-care (01) | DRG 312 ==
LOC: JER 16:02 → JERBED 19:42 → J4W 08-05 03:19
PROVIDERS: ADMIT Hospitalist; ATTEND Internal Medicine
DX: R55 Syncope and collapse (principal); K21.9 Gastro-esophageal reflux disease without esophagitis; K58.9 Irritable bowel syndrome, unspecified; I11.9 Hypertensive heart disease without heart failure; I08.1 Rheumatic disorders of both mitral and tricuspid valves; I27.20 Pulmonary hypertension, unspecified; R73.03 Prediabetes; I48.0 Paroxysmal atrial fibrillation; E78.1 Pure hyperglyceridemia; Y92.89 Other specified places as the place of occurrence of the external cause; W18.30XA Fall on same level, unspecified, initial encounter; Z85.3 Personal history of malignant neoplasm of breast
CPT/HCPCS: 36415; 70450-TC; 71046-TC-FY; 72125-TC; 80048; 80053; 82550; 83036; 83735; 84436; 84443; 84479; 84484; 85025; 85027; 85610; 85730; 93005; 93010; 93306-TC; 93880-TC; 99285-25; C9803; U0003

== ENCOUNTER 2021-11-24 22:51 | Inpatient (IN) | payer OTHER, BC ==
[2021-11-24 23:00] VITALS: BMI 25.7
[2021-11-24] MEDS ORDERED: METOPROLOL TARTRATE 5 MG/5 ML VIAL IVPUSH ONE (23:23)
[2021-11-24] MEDS ORDERED: METOPROLOL TARTRATE 5 MG/5 ML VIAL ONE (23:42)
[2021-11-25 00:25] LABS: BASO % 0.6 % (0-2.0); EOS % 1.1 % (0-4.5); HEMATOCRIT 39.1 % (32.4-45.2); HEMOGLOBIN 13.1 GM/dL (10.7-15.3); LYMPH % 15.2 % (8-40); MCHC 33.5 g/dl (32.0-36.0); MEAN CELL VOLUME 89.6 fl (80-96); MONO % 9.2 % (3.8-10.2); NEUT % 73.9 % (42.8-82.8); PLATELET COUNT 203 10^3/uL (134-434); RBC 4.37 M/mm3 (3.60-5.2); WHITE BLOOD COUNT 7.2 K/mm3 (4.0-10.0)
[2021-11-25 00:42] LABS: CHLORIDE 102 mmol/L (98-107); SODIUM 136 mmol/L (136-145)
[2021-11-25 00:45] LABS: ALBUMIN 4.2 g/dl (3.4-5.0); ANION GAP 8 MMOL/L (8-16); CALCIUM 9.3 mg/dL (8.5-10.1); CO2 27 mmol/L (21-32); GLUCOSE,RANDOM 127 mg/dL (74-106)
[2021-11-25 00:48] LABS: CREATININE 1.2 mg/dL (0.55-1.3); SGOT/AST 17 U/L (15-37); SGPT/ALT 21 U/L (13-61)
[2021-11-25 00:50] LABS: BILIRUBIN,TOTAL 0.6 mg/dL (0.2-1); TOT PROT 7.8 g/dl (6.4-8.2)
[2021-11-25 00:51] LABS: ALK PHOS 78 U/L (45-117)
[2021-11-25] MEDS ORDERED: FUROSEMIDE 40 MG/4 ML INJECTABLE VIAL IVPUSH ONE (01:11)
[2021-11-25] MEDS ORDERED: FUROSEMIDE 40 MG/4 ML INJECTABLE VIAL ONE (01:15)
[2021-11-25 01:22] LABS: INR 3.25 (0.83-1.09); PROTHROMBIN TIME (PATIENT) 37.28 SEC (9.7-13.0)
[2021-11-25 01:56] LABS: EPI CELLS 3 /uL (0-25.1); HYALINE CASTS 0 /uL (0-3.1); PH,URINE 6.5 (5.0-8.0); URINE APPEARANCE CLEAR; URINE BACTERIA 24 /uL (0-1359); URINE BILIRUBIN NEGATIVE (NEGATIVE); URINE COLOR YELLOW; URINE GLUCOSE (UA) NEGATIVE (NEGATIVE); URINE KETONE TRACE (NEGATIVE); URINE LEUK ESTERASE NEGATIVE (NEGATIVE); URINE NITRITE NEGATIVE (NEGATIVE); URINE PROTEIN NEGATIVE (NEGATIVE); URINE RBC 18 /uL (0-23.9); URINE UROBILINOGEN 0.2 mg/dL (0.2-1.0); URINE WBC 2 /uL (0-25.8)
[2021-11-25 07:40] LABS: HEMATOCRIT 42.5 % (32.4-45.2); HEMOGLOBIN 13.8 GM/dL (10.7-15.3); MCH 29.4 pg (25.7-33.7); MCHC 32.4 g/dl (32.0-36.0); MEAN CELL VOLUME 90.7 fl (80-96); PLATELET COUNT 220 10^3/uL (134-434); RBC 4.68 M/mm3 (3.60-5.2); RDW 13.9 % (11.6-15.6); WHITE BLOOD COUNT 6.3 K/mm3 (4.0-10.0)
[2021-11-25 08:09] LABS: ALBUMIN 4.3 g/dl (3.4-5.0); BLOOD UREA NITROGEN 19.7 mg/dL (7-18); CALCIUM 10.4 mg/dL (8.5-10.1); MAGNESIUM 2.3 mg/dL (1.8-2.4)
[2021-11-25 08:12] LABS: CREATININE 1.1 mg/dL (0.55-1.3); PHOSPHOROUS 3.3 mg/dL (2.5-4.9)
[2021-11-25 08:14] LABS: BILIRUBIN,TOTAL 0.9 mg/dL (0.2-1); TOT PROT 7.9 g/dl (6.4-8.2)
[2021-11-25] MEDS ORDERED: FAMOTIDINE 20 MG TABLET ONE (09:53)
[2021-11-25] MEDS: FAMOTIDINE 20 MG TABLET PO SCH ×2 (09:58→21:40)
[2021-11-25] MEDS ORDERED: ENOXAPARIN NA (PORCINE) 40 MG/0.4 ML DISP.SYRIN SQ SCH (10:00)
[2021-11-25] MEDS ORDERED: LOSARTAN POTASSIUM 50 MG TABLET ONE (10:28)
[2021-11-25] MEDS: SOTALOL HCL 80 MG TABLET (FP) PO SCH ×2 (10:34→21:40)
[2021-11-25] MEDS: HYDROCHLOROTHIAZIDE 12.5 MG CAPSULE (FP) PO SCH (10:34)
[2021-11-25] MEDS: LOSARTAN POTASSIUM 50 MG TABLET PO SCH (10:34)
[2021-11-25] MEDS: RIVAROXABAN 20 MG TABLET PO SCH (19:05)
[2021-11-26 07:42] LABS: BASO % 0.5 % (0-2.0); EOS % 1.6 % (0-4.5); HEMATOCRIT 42.7 % (32.4-45.2); LYMPH % 23.2 % (8-40); MCH 29.6 pg (25.7-33.7); MCHC 32.9 g/dl (32.0-36.0); MEAN CELL VOLUME 90.2 fl (80-96); MEAN PLT VOLUME 8.9 fl (7.5-11.1); MONO % 10.2 % (3.8-10.2); NEUT % 64.5 % (42.8-82.8); PLATELET COUNT 250 10^3/uL (134-434); RBC 4.73 M/mm3 (3.60-5.2); RDW 13.6 % (11.6-15.6)
[2021-11-26 08:02] LABS: CALCIUM 10.2 mg/dL (8.5-10.1)
[2021-11-26 08:03] LABS: ALBUMIN 4.1 g/dl (3.4-5.0); BLOOD UREA NITROGEN 34.1 mg/dL (7-18)
[2021-11-26 08:06] LABS: CREATININE 1.3 mg/dL (0.55-1.3)
[2021-11-26 08:07] LABS: BILIRUBIN,TOTAL 0.8 mg/dL (0.2-1)
[2021-11-26 08:08] LABS: TOT PROT 7.8 g/dl (6.4-8.2)
[2021-11-26] MEDS: FAMOTIDINE 20 MG TABLET PO SCH ×2 (09:55→21:37)
[2021-11-26] MEDS: LOSARTAN POTASSIUM 50 MG TABLET PO SCH (09:55)
[2021-11-26] MEDS: HYDROCHLOROTHIAZIDE 12.5 MG CAPSULE (FP) PO SCH (09:55)
[2021-11-26] MEDS: SOTALOL HCL 80 MG TABLET (FP) PO SCH ×2 (09:55→21:37)
[2021-11-26] MEDS ORDERED: VERAPAMIL HCL 40 MG TABLET PO ONE (10:42)
[2021-11-26] MEDS ORDERED: VERAPAMIL HCL 120 MG E.R. TABLET PO SCH (15:15)
[2021-11-26] MEDS ORDERED: VERAPAMIL HCL 120 MG CAP SUSTAINED RELEASE PO SCH (16:34)
[2021-11-26] MEDS: RIVAROXABAN 20 MG TABLET PO SCH (17:41)
[2021-11-27 06:45] LABS: BASO % 0.6 % (0-2.0); EOS % 1.2 % (0-4.5); HEMATOCRIT 39.7 % (32.4-45.2); HEMOGLOBIN 12.9 GM/dL (10.7-15.3); LYMPH % 19.3 % (8-40); MCH 29.1 pg (25.7-33.7); MCHC 32.4 g/dl (32.0-36.0); MEAN CELL VOLUME 89.9 fl (80-96); MEAN PLT VOLUME 9.4 fl (7.5-11.1); MONO % 11.6 % (3.8-10.2); NEUT % 67.3 % (42.8-82.8); PLATELET COUNT 216 10^3/uL (134-434); RBC 4.41 M/mm3 (3.60-5.2); RDW 13.9 % (11.6-15.6); WHITE BLOOD COUNT 7.2 K/mm3 (4.0-10.0)
[2021-11-27 07:02] LABS: CALCIUM 9.9 mg/dL (8.5-10.1)
[2021-11-27 07:03] LABS: ALBUMIN 3.8 g/dl (3.4-5.0)
[2021-11-27 07:06] LABS: CREATININE 1.4 mg/dL (0.55-1.3)
[2021-11-27 07:07] LABS: TOT PROT 7.1 g/dl (6.4-8.2)
[2021-11-27 07:08] LABS: BILIRUBIN,TOTAL 0.5 mg/dL (0.2-1)
[2021-11-27 08:11] VITALS: PULSE 89
[2021-11-27] MEDS: SOTALOL HCL 80 MG TABLET (FP) PO SCH (09:33)
[2021-11-27] MEDS: FAMOTIDINE 20 MG TABLET PO SCH (09:34)
[2021-11-27 14:03] VITALS: BP 114/65; TEMP 98.5
== END 2021-11-27 18:08 | disposition home or self-care (01) | DRG 308 ==
LOC: JER 22:51 → JERBED 23:24 → J4W 11-25 17:37
PROVIDERS: ADMIT Internal Medicine; ATTEND Internal Medicine
DX: I48.0 Paroxysmal atrial fibrillation (principal); I50.33 Acute on chronic diastolic (congestive) heart failure; I11.0 Hypertensive heart disease with heart failure; M06.9 Rheumatoid arthritis, unspecified; E87.70 Fluid overload, unspecified; R73.03 Prediabetes; K58.9 Irritable bowel syndrome, unspecified; R94.6 Abnormal results of thyroid function studies; E78.1 Pure hyperglyceridemia; I25.10 Atherosclerotic heart disease of native coronary artery without angina pectoris; I27.20 Pulmonary hypertension, unspecified; I08.1 Rheumatic disorders of both mitral and tricuspid valves; K21.9 Gastro-esophageal reflux disease without esophagitis; Z85.3 Personal history of malignant neoplasm of breast; Z79.01 Long term (current) use of anticoagulants
CPT/HCPCS: 36415; 71045-TC-FY; 80053; 81003; 82550; 83735; 83880; 84100; 84439; 84443; 84481; 84484; 85025; 85027; 85610; 87086; 93005; 93010; 93306-TC; 99285-25; C9803; U0003; U0005

== ENCOUNTER 2022-01-27 05:18 | Day surgery (SDC) | payer OTHER, BC ==
[2022-01-25 08:17] VITALS: BMI 26.7
[2022-01-27 10:39] VITALS: TEMP 97.7
[2022-01-27] MEDS ORDERED: KETOROLAC TROMETHAMINE 15 MG/ML VIAL IVPUSH PRN (10:47)
[2022-01-27 11:18] VITALS: BP 128/56; PULSE 57
== END 2022-01-27 11:38 | disposition home or self-care (01) ==
LOC: JASU-ENDO 05:18
PROVIDERS: ATTEND Internal Medicine Gastroenterology
PROC: 0DBP8ZX Excision of Rectum, Via Natural or Artificial Opening Endoscopic, Diagnostic (ICD-10-PCS; principal; 2022-01-27 10:00)
DX: Z86.010 Personal history of colon polyps (principal); K62.1 Rectal polyp; R19.5 Other fecal abnormalities; K64.8 Other hemorrhoids; K57.30 Diverticulosis of large intestine without perforation or abscess without bleeding; K59.39 Other megacolon
CPT/HCPCS: 88305-TC; 88313-TC

== ENCOUNTER 2022-04-12 13:24 | Emergency (ER) | payer OTHER, BC ==
[2022-04-12 14:19] VITALS: PULSE 60; TEMP 98.5; BMI 25.7
[2022-04-12 16:52] LABS: BASO % 0.4 % (0-2.0); EOS % 0.6 % (0-4.5); HEMATOCRIT 35.5 % (32.4-45.2); HEMOGLOBIN 11.8 GM/dL (10.7-15.3); LYMPH % 14.6 % (8-40); MCHC 33.1 g/dl (32.0-36.0); MEAN CELL VOLUME 90.6 fl (80-96); MEAN PLT VOLUME 8.6 fl (7.5-11.1); MONO % 9.7 % (3.8-10.2); NEUT % 74.7 % (42.8-82.8); PLATELET COUNT 239 10^3/uL (134-434); RBC 3.92 M/mm3 (3.60-5.2); RDW 14.7 % (11.6-15.6); WHITE BLOOD COUNT 7.7 K/mm3 (4.0-10.0)
[2022-04-12 17:08] LABS: ALBUMIN 4.3 g/dl (3.4-5.0); BLOOD UREA NITROGEN 19.8 mg/dL (7-18)
[2022-04-12 17:11] LABS: CREATININE 1.1 mg/dL (0.55-1.3)
[2022-04-12 17:13] LABS: BILIRUBIN,TOTAL 0.6 mg/dL (0.2-1); TOT PROT 7.9 g/dl (6.4-8.2)
[2022-04-12 18:21] LABS: N-TERMINAL BNP 1416.8 pg/ml (5-450)
[2022-04-12 19:36] VITALS: BP 168/70
== END 2022-04-12 20:40 | disposition home or self-care (01) ==
LOC: JER 13:24
DX: R06.09 Other forms of dyspnea (principal)
CPT/HCPCS: 0241U-QW; 36415; 71046-TC-FY; 80053; 82550; 83880; 84484; 85025; 93005; 93010; 99285-25

== ENCOUNTER 2022-09-06 10:38 | Inpatient (IN) | payer OTHER, BC ==
[2022-09-06 13:26] LABS: BASO % 0.5 % (0-2.0); EOS % 0.8 % (0-4.5); HEMATOCRIT 40.7 % (32.4-45.2); HEMOGLOBIN 13.5 GM/dL (10.7-15.3); LYMPH % 12.8 % (8-40); MCH 29.5 pg (25.7-33.7); MCHC 33.3 g/dl (32.0-36.0); MEAN CELL VOLUME 88.6 fl (80-96); MEAN PLT VOLUME 8.5 fl (7.5-11.1); MONO % 11.6 % (3.8-10.2); NEUT % 74.3 % (42.8-82.8); PLATELET COUNT 223 10^3/uL (134-434); RDW 15.9 % (11.6-15.6); WHITE BLOOD COUNT 8.3 K/mm3 (4.0-10.0)
[2022-09-06 13:32] LABS: INR 2.12 (0.83-1.09); PROTHROMBIN TIME (PATIENT) 24.6 SEC (9.7-13.0)
[2022-09-06 13:35] LABS: ACTIVATED PTT 38.4 SECONDS (25.2-36.5)
[2022-09-06 13:57] LABS: BLOOD UREA NITROGEN 17.3 mg/dL (7-18); CALCIUM 9.4 mg/dL (8.5-10.1)
[2022-09-06 13:58] LABS: ALBUMIN 4.1 g/dl (3.4-5.0)
[2022-09-06 14:01] LABS: CREATININE 0.9 mg/dL (0.55-1.3)
[2022-09-06 14:02] LABS: BILIRUBIN,TOTAL 0.9 mg/dL (0.2-1); TOT PROT 7.8 g/dl (6.4-8.2)
[2022-09-06] MEDS ORDERED: SOTALOL HCL 80 MG TABLET (FP) PO ONE (15:40)
[2022-09-06] MEDS ORDERED: dilTIAZem HCL 30 MG TABLET PO ONE (15:43)
[2022-09-06] MEDS ORDERED: METOPROLOL TARTRATE 5 MG/5 ML VIAL IVPUSH PRN (17:58)
[2022-09-06] MEDS: RIVAROXABAN 20 MG TABLET PO SCH (22:24)
[2022-09-06] MEDS: SOTALOL HCL 80 MG TABLET (FP) PO SCH (22:24)
[2022-09-07 07:27] LABS: CALCIUM 9.2 mg/dL (8.5-10.1)
[2022-09-07 07:28] LABS: BLOOD UREA NITROGEN 26.1 mg/dL (7-18)
[2022-09-07 07:31] LABS: PHOSPHOROUS 3.4 mg/dL (2.5-4.9)
[2022-09-07 07:37] LABS: BASO % 0.5 % (0-2.0); EOS % 0.7 % (0-4.5); HEMATOCRIT 40.6 % (32.4-45.2); HEMOGLOBIN 13.4 GM/dL (10.7-15.3); LYMPH % 12.9 % (8-40); MCH 29.5 pg (25.7-33.7); MCHC 33.1 g/dl (32.0-36.0); MEAN CELL VOLUME 89.1 fl (80-96); MEAN PLT VOLUME 8.6 fl (7.5-11.1); MONO % 10.7 % (3.8-10.2); NEUT % 75.2 % (42.8-82.8); PLATELET COUNT 202 10^3/uL (134-434); RBC 4.56 M/mm3 (3.60-5.2); RDW 16.1 % (11.6-15.6); WHITE BLOOD COUNT 9.3 K/mm3 (4.0-10.0)
[2022-09-07] MEDS: INSULIN SLIDING SCALE (NOVOLOG) 1 VIAL SQ SCH ×3 (08:34→16:57)
[2022-09-07] MEDS ORDERED: LOSARTAN POTASSIUM 50 MG TABLET ONE (10:02)
[2022-09-07] MEDS ORDERED: ROSUVASTATIN CA 20 MG TABLET ONE (10:02)
[2022-09-07] MEDS: ROSUVASTATIN CA 10 MG TABLET PO SCH (10:12)
[2022-09-07] MEDS: LOSARTAN POTASSIUM 50 MG TABLET PO SCH (10:12)
[2022-09-07] MEDS: SOTALOL HCL 80 MG TABLET (FP) PO SCH ×2 (12:22→21:51)
[2022-09-07 16:39] VITALS: BMI 25.2
[2022-09-07] MEDS: RIVAROXABAN 20 MG TABLET PO SCH (18:34)
[2022-09-07] MEDS ORDERED: POLYETHYLENE GLYCOL (HEALTHYLAX) 3350 17 GM PACKET PO ONE (20:00)
[2022-09-07 23:39] VITALS: RESP 20
[2022-09-08] MEDS: INSULIN SLIDING SCALE (NOVOLOG) 1 VIAL SQ SCH ×2 (06:01→11:43)
[2022-09-08 08:21] LABS: HEMATOCRIT 36.6 % (32.4-45.2); HEMOGLOBIN 12.4 GM/dL (10.7-15.3); MCHC 33.8 g/dl (32.0-36.0); MEAN CELL VOLUME 88.9 fl (80-96); MEAN PLT VOLUME 8.9 fl (7.5-11.1); PLATELET COUNT 217 10^3/uL (134-434); RBC 4.12 M/mm3 (3.60-5.2); WHITE BLOOD COUNT 10.4 K/mm3 (4.0-10.0)
[2022-09-08 08:48] LABS: CALCIUM 9.4 mg/dL (8.5-10.1)
[2022-09-08 08:49] LABS: BLOOD UREA NITROGEN 32.7 mg/dL (7-18)
[2022-09-08 08:52] LABS: CREATININE 1.1 mg/dL (0.55-1.3)
[2022-09-08] MEDS: SOTALOL HCL 80 MG TABLET (FP) PO SCH (09:36)
[2022-09-08] MEDS: ROSUVASTATIN CA 10 MG TABLET PO SCH (09:37)
[2022-09-08] MEDS: LOSARTAN POTASSIUM 50 MG TABLET PO SCH (09:37)
[2022-09-08] MEDS ORDERED: HYDROCHLOROTHIAZIDE 12.5 MG CAPSULE (FP) PO SCH (10:00)
[2022-09-08] MEDS ORDERED: ACETAMINOPHEN 325 MG TABLET (FP) PO ONE (10:04)
[2022-09-08 11:58] VITALS: BP 129/58; PULSE 76; TEMP 97.5
== END 2022-09-08 13:50 | disposition home or self-care (01) | DRG 309 ==
LOC: JER 10:38 → JERBED 15:51 → OBSVTOIN 15:51 → J4S 09-07 14:49
PROVIDERS: ADMIT Internal Medicine; ATTEND Internal Medicine
PROC: 5A2204Z Restoration of Cardiac Rhythm, Single (ICD-10-PCS; principal; 2022-09-07 12:00)
DX: I48.92 Unspecified atrial flutter (principal); I50.30 Unspecified diastolic (congestive) heart failure; I48.0 Paroxysmal atrial fibrillation; I25.10 Atherosclerotic heart disease of native coronary artery without angina pectoris; K21.9 Gastro-esophageal reflux disease without esophagitis; I34.0 Nonrheumatic mitral (valve) insufficiency; I34.1 Nonrheumatic mitral (valve) prolapse; I11.0 Hypertensive heart disease with heart failure; E78.5 Hyperlipidemia, unspecified
CPT/HCPCS: 0241U-QW; 36415; 71045-TC-FY; 80048; 80053; 82962; 83735; 84100; 84439; 84443; 84484; 85025; 85027; 85610; 85730; 93005; 93010; 97116-GP; 97161-GP; 99285-25

== ENCOUNTER 2022-12-22 12:01 | Emergency (ER) | payer OTHER, BC ==
[2022-12-22 12:13] VITALS: TEMP 97.6; BMI 25.7
[2022-12-22 13:33] LABS: HEMATOCRIT 38.6 % (32.4-45.2); HEMOGLOBIN 12.9 GM/dL (10.7-15.3); MCH 28.9 pg (25.7-33.7); MCHC 33.3 g/dl (32.0-36.0); MEAN CELL VOLUME 86.9 fl (80-96); MEAN PLT VOLUME 9.1 fl (7.5-11.1); PLATELET COUNT 218 10^3/uL (134-434); RBC 4.45 M/mm3 (3.60-5.2); RDW 14.7 % (11.6-15.6); WHITE BLOOD COUNT 7.1 K/mm3 (4.0-10.0)
[2022-12-22 13:53] LABS: CALCIUM 9.1 mg/dL (8.5-10.1)
[2022-12-22 13:54] LABS: BLOOD UREA NITROGEN 20.6 mg/dL (7-18)
[2022-12-22 13:55] LABS: ALBUMIN 3.5 g/dl (3.4-5.0)
[2022-12-22 13:57] LABS: PHOSPHOROUS 2.2 mg/dL (2.5-4.9)
[2022-12-22 13:58] LABS: BILIRUBIN,TOTAL 0.9 mg/dL (0.2-1)
[2022-12-22] MEDS ORDERED: SODIUM CHLORIDE 500 ML IV STA (14:13)
[2022-12-22 16:24] VITALS: BP 172/81; PULSE 90; RESP 14
== END 2022-12-22 16:30 | disposition home or self-care (01) ==
LOC: JER 12:01
PROC: 3E0337Z Introduction of Electrolytic and Water Balance Substance into Peripheral Vein, Percutaneous Approach (ICD-10-PCS; principal; 2022-12-22)
DX: R00.2 Palpitations (principal)
CPT/HCPCS: 36415; 80053; 83735; 84100; 84484; 85027; 93005; 93010; 99284-25

== ENCOUNTER 2023-02-28 18:19 | Inpatient (IN) | payer OTHER, BC ==
[2023-02-28 21:05] LABS: BASO % 0.7 % (0-2.0); EOS % 3.2 % (0-4.5); HEMOGLOBIN 13.2 GM/dL (10.7-15.3); LYMPH % 14.6 % (8-40); MCH 29.3 pg (25.7-33.7); MCHC 33.9 g/dl (32.0-36.0); MEAN CELL VOLUME 86.4 fl (80-96); MEAN PLT VOLUME 8.4 fl (7.5-11.1); MONO % 8.4 % (3.8-10.2); NEUT % 73.1 % (42.8-82.8); PLATELET COUNT 235 10^3/uL (134-434); RBC 4.51 M/mm3 (3.60-5.2); RDW 16.3 % (11.6-15.6); WHITE BLOOD COUNT 7.7 K/mm3 (4.0-10.0)
[2023-02-28 21:14] LABS: INR 1.82 (0.83-1.09)
[2023-02-28 21:16] LABS: ACTIVATED PTT 37.6 SECONDS (25.2-36.5)
[2023-02-28 21:43] LABS: POTASSIUM 3.7 mmol/L (3.5-5.1)
[2023-02-28 21:44] LABS: CALCIUM 9.4 mg/dL (8.5-10.1)
[2023-02-28 21:45] LABS: ALBUMIN 3.6 g/dl (3.4-5.0); BLOOD UREA NITROGEN 22.2 mg/dL (7-18); MAGNESIUM 2.1 mg/dL (1.8-2.4)
[2023-02-28 21:50] LABS: BILIRUBIN,TOTAL 0.7 mg/dL (0.2-1); TOT PROT 7.3 g/dl (6.4-8.2)
[2023-02-28 21:52] LABS: N-TERMINAL BNP 1806.3 pg/ml (5-450)
[2023-02-28] MEDS ORDERED: FUROSEMIDE 40 MG/4 ML INJECTABLE VIAL IVPUSH ONE (22:05)
[2023-02-28] MEDS ORDERED: FUROSEMIDE 40 MG/4 ML INJECTABLE VIAL ONE (22:21)
[2023-02-28] MEDS ORDERED: FAMOTIDINE 20 MG TABLET ONE (23:45)
[2023-02-28] MEDS: FAMOTIDINE 20 MG TABLET PO SCH (23:47)
[2023-02-28] MEDS: SOTALOL HCL 120 MG PO SCH (23:47)
[2023-03-01] MEDS: METOPROLOL TARTRATE 25 MG TABLET (FP) PO SCH ×2 (02:23→06:26)
[2023-03-01] MEDS ORDERED: FUROSEMIDE 40 MG/4 ML INJECTABLE VIAL IVPUSH SCH (06:00)
[2023-03-01] MEDS: FUROSEMIDE 40 MG/4 ML INJECTABLE VIAL IVPUSH SCH ×2 (06:26→13:56)
[2023-03-01 07:02] LABS: HEMATOCRIT 33.4 % (32.4-45.2); HEMOGLOBIN 11.6 GM/dL (10.7-15.3); MCH 29.7 pg (25.7-33.7); MCHC 34.6 g/dl (32.0-36.0); MEAN CELL VOLUME 85.7 fl (80-96); MEAN PLT VOLUME 8.2 fl (7.5-11.1); PLATELET COUNT 197 10^3/uL (134-434); RDW 15.9 % (11.6-15.6)
[2023-03-01 07:24] LABS: POTASSIUM 3.5 mmol/L (3.5-5.1)
[2023-03-01 07:27] LABS: BLOOD UREA NITROGEN 22.2 mg/dL (7-18); CALCIUM 8.9 mg/dL (8.5-10.1); MAGNESIUM 1.8 mg/dL (1.8-2.4)
[2023-03-01 07:31] LABS: CREATININE 0.9 mg/dL (0.55-1.3); PHOSPHOROUS 3.3 mg/dL (2.5-4.9)
[2023-03-01 07:33] LABS: TOT PROT 5.6 g/dl (6.4-8.2)
[2023-03-01 07:38] LABS: ALBUMIN 2.7 g/dl (3.4-5.0)
[2023-03-01] MEDS: FAMOTIDINE 20 MG TABLET PO SCH ×2 (09:29→22:25)
[2023-03-01] MEDS ORDERED: LOSARTAN POTASSIUM 50 MG TABLET PO SCH (10:00)
[2023-03-01] MEDS ORDERED: amLODIPine BESYLATE 5 MG TABLET (FP) PO SCH (10:00)
[2023-03-01] MEDS ORDERED: HYDROCHLOROTHIAZIDE 12.5 MG CAPSULE (FP) PO SCH (10:00)
[2023-03-01] MEDS: SOTALOL HCL 120 MG PO SCH ×2 (10:04→22:46)
[2023-03-01] MEDS: RIVAROXABAN 20 MG TABLET PO SCH (17:33)
[2023-03-01 19:38] LABS: EPI CELLS 13 /uL (0-25.1); HYALINE CASTS 3 /uL (0-3.1); URINE APPEARANCE CLEAR; URINE BACTERIA 24 /uL (0-1359); URINE BILIRUBIN NEGATIVE (NEGATIVE); URINE COLOR YELLOW; URINE GLUCOSE (UA) NEGATIVE (NEGATIVE); URINE KETONE NEGATIVE (NEGATIVE); URINE LEUK ESTERASE TRACE (NEGATIVE); URINE NITRITE NEGATIVE (NEGATIVE); URINE PROTEIN 3+ (NEGATIVE); URINE RBC 7 /uL (0-23.9); URINE UROBILINOGEN 0.2 mg/dL (0.2-1.0); URINE WBC 16 /uL (0-25.8)
[2023-03-01] MEDS: ROSUVASTATIN CA 10 MG TABLET PO SCH (22:24)
[2023-03-02] MEDS: FUROSEMIDE 40 MG/4 ML INJECTABLE VIAL IVPUSH SCH ×2 (06:33→13:29)
[2023-03-02 07:14] LABS: HEMATOCRIT 35.7 % (32.4-45.2); HEMOGLOBIN 12.4 GM/dL (10.7-15.3); MCHC 34.8 g/dl (32.0-36.0); MEAN CELL VOLUME 86.1 fl (80-96); PLATELET COUNT 205 10^3/uL (134-434); RBC 4.15 M/mm3 (3.60-5.2); RDW 15.8 % (11.6-15.6); WHITE BLOOD COUNT 6.2 K/mm3 (4.0-10.0)
[2023-03-02 07:41] LABS: POTASSIUM 3.1 mmol/L (3.5-5.1)
[2023-03-02 07:46] LABS: ALBUMIN 2.8 g/dl (3.4-5.0)
[2023-03-02 07:47] LABS: BLOOD UREA NITROGEN 25.8 mg/dL (7-18); MAGNESIUM 1.9 mg/dL (1.8-2.4)
[2023-03-02 07:49] LABS: PHOSPHOROUS 3.5 mg/dL (2.5-4.9)
[2023-03-02 07:50] LABS: CREATININE 1.1 mg/dL (0.55-1.3)
[2023-03-02 07:51] LABS: BILIRUBIN,TOTAL 0.8 mg/dL (0.2-1); TOT PROT 5.9 g/dl (6.4-8.2)
[2023-03-02] MEDS: FAMOTIDINE 20 MG TABLET PO SCH ×2 (09:41→21:57)
[2023-03-02] MEDS ORDERED: POTASSIUM CHLORIDE TABS 20 MEQ TABLET.ER (FP) PO ONE (10:20)
[2023-03-02] MEDS: SOTALOL HCL 120 MG PO SCH ×2 (10:57→21:58)
[2023-03-02] MEDS: KCL 10 MEQ IVPB 10 MEQ/100 ML INFUS.BAG IVPB SCH ×3 (10:58→13:27)
[2023-03-02 11:00] VITALS: BMI 24.8
[2023-03-02] MEDS: RIVAROXABAN 20 MG TABLET PO SCH (17:17)
[2023-03-02] MEDS: ROSUVASTATIN CA 10 MG TABLET PO SCH (21:57)
[2023-03-03] MEDS: FUROSEMIDE 40 MG/4 ML INJECTABLE VIAL IVPUSH SCH ×2 (06:43→13:22)
[2023-03-03 06:44] LABS: HEMATOCRIT 35.7 % (32.4-45.2); HEMOGLOBIN 12.3 GM/dL (10.7-15.3); MCH 29.8 pg (25.7-33.7); MCHC 34.6 g/dl (32.0-36.0); MEAN CELL VOLUME 86.2 fl (80-96); MEAN PLT VOLUME 9.1 fl (7.5-11.1); PLATELET COUNT 202 10^3/uL (134-434); RBC 4.14 M/mm3 (3.60-5.2); RDW 15.9 % (11.6-15.6); WHITE BLOOD COUNT 8.7 K/mm3 (4.0-10.0)
[2023-03-03 07:07] LABS: POTASSIUM 3.9 mmol/L (3.5-5.1)
[2023-03-03 07:08] LABS: ALBUMIN 3.1 g/dl (3.4-5.0)
[2023-03-03 07:09] LABS: BLOOD UREA NITROGEN 29.1 mg/dL (7-18); MAGNESIUM 2.1 mg/dL (1.8-2.4)
[2023-03-03 07:12] LABS: CREATININE 1.2 mg/dL (0.55-1.3); PHOSPHOROUS 3.2 mg/dL (2.5-4.9)
[2023-03-03 07:13] LABS: BILIRUBIN,TOTAL 0.8 mg/dL (0.2-1); TOT PROT 6.4 g/dl (6.4-8.2)
[2023-03-03 07:14] LABS: CHOLESTEROL 149 mg/dL (50-200); LDL CHOLESTEROL (ONLY SJRH) 70 mg/dL (5-100)
[2023-03-03 07:16] LABS: HDL CHOLESTEROL 61 mg/dL (40-60)
[2023-03-03] MEDS ORDERED: ACETAMINOPHEN 1000 MG/100 ML BAG IVPB ONE (08:00)
[2023-03-03] MEDS: FAMOTIDINE 20 MG TABLET PO SCH (09:04)
[2023-03-03] MEDS: SOTALOL HCL 120 MG PO SCH (09:04)
[2023-03-03 10:18] VITALS: RESP 18
[2023-03-03 13:52] VITALS: BP 119/55; PULSE 56; TEMP 97.7
[2023-03-03 20:07] LABS: ANTIGLOMERULAR BASEMENT MEN.AB <0.2 units (0.0-0.9)
== END 2023-03-03 15:50 | disposition home or self-care (01) | DRG 291 ==
LOC: JER 18:19 → JERBED 22:05 → J4S 03-01 00:52 → OBSVTOIN 03-01 10:46 → J4S 03-01 13:15
PROVIDERS: ADMIT Internal Medicine; ATTEND Internal Medicine
DX: I11.0 Hypertensive heart disease with heart failure (principal); I50.33 Acute on chronic diastolic (congestive) heart failure; N04.9 Nephrotic syndrome with unspecified morphologic changes; I48.0 Paroxysmal atrial fibrillation; K21.9 Gastro-esophageal reflux disease without esophagitis; I25.10 Atherosclerotic heart disease of native coronary artery without angina pectoris; I34.0 Nonrheumatic mitral (valve) insufficiency; I27.20 Pulmonary hypertension, unspecified; E87.6 Hypokalemia; R80.9 Proteinuria, unspecified; I34.1 Nonrheumatic mitral (valve) prolapse; E78.1 Pure hyperglyceridemia; Z79.01 Long term (current) use of anticoagulants; N28.1 Cyst of kidney, acquired
CPT/HCPCS: 0241U-QW; 36415; 71045-TC-FY; 71250-TC; 76775-TC; 80053; 80061; 81003; 82043; 82570; 83036; 83516; 83520; 83735; 83880; 84100; 84155; 84156; 84165; 84443; 84484; 85025; 85027; 85610; 85730; 86038; 86225; 86256; 86850; 86900; 86901; 93005; 93010; 93306-TC; 99285-25; G0378

== ENCOUNTER 2023-08-01 10:25 | Emergency (ER) | payer OTHER, BC ==
[2023-08-01 10:52] VITALS: BP 0/0; BMI 29.9
== END 2023-08-01 13:37 | disposition expired ==
LOC: JER 10:25
DX: I46.9 Cardiac arrest, cause unspecified (principal); R05.9 Cough, unspecified; R06.02 Shortness of breath; R60.0 Localized edema
CPT/HCPCS: 82962; 99291